=== PATIENT | male | born 1990 ===

== ENCOUNTER 2016-10-22 17:15 | Emergency (ER) | payer SELFPAY ==
[2016-10-22 17:23] VITALS: BP 119/73
--- NOTE | 2016-10-22 17:38 | Emergency Department Report ---
ED Male HPI - General Chief complaint: Urogenital-Male Stated complaint: URINE PAIN Time Seen by Provider: 10/22/16 17:37 Source: patient Mode of arrival: Ambulatory Limitations: No Limitations - History of Present Illness Initial comments: Patient here complaining of painful urination 2 days. He said he had unprotected sex on Sunday and he is requesting STD check. Denied any penile rash or lesion. Denies any penile discharge. He said he has sex with somebody that he is known for a while but he does not trust her. Since that the pain when he urinates is 7 out of 10. Forced urination better after urination. No [id number] medication taken. No nausea or vomiting. No abdominal or back pain. No fever or chills. Patient denies any medical problems. Patient has penicillin allergies that cause anaphylaxis. MD Complaint: dysuria Onset/Timin -: days(s) Severity: moderate Severity scale (0 -10): 7 Quality: burning Consistency: intermittent Worsens with: urination denies other symptoms - Related Data Sexually active: Yes Previous Rx's Medication Instructions Recorded Last Taken Type Clindamycin [Clindamycin CAP] 300 mg PO Q8H #21 cap 12/15/14 Unknown Rx HYDROcodone/APAP 5-325 [[place] 1 each PO Q6HR PRN #12 tablet 12/15/14 Unknown Rx 5/325] Ciprofloxacin HCl [Ciprofloxacin 500 mg PO Q12HR #20 tab 10/22/16 Unknown Rx TAB] Allergies Allergy/AdvReac Type Severity Reaction Status Date / Time Penicillins Allergy Anaphylaxis Verified 12/15/14 09:54 ED Review of Systems ROS: Stated complaint: URINE PAIN Other details as noted in HPI Comment: All other systems reviewed and negative Constitutional: denies: chills, fever ENT: denies: throat pain Respiratory: no symptoms reported Cardiovascular: denies: chest pain, palpitations, edema, syncope Gastrointestinal: denies: abdominal pain, nausea, vomiting, diarrhea Genitourinary: dysuria. denies: urgency, frequency, hematuria, discharge, testicular pain, testicular mass Musculoskeletal: denies: back pain, arthralgia, myalgia Skin: denies: rash Neurological: denies: headache ED Past Medical Hx - Past Medical History Previous Medical History?: No - Surgical History Past Surgical History?: No - Family History Family history: no significant - Social History Smoking Status: Never Smoker Substance Use Type: None - Medications Home Medications: Home Medications Medication Instructions Recorded Confirmed Last Taken Type Clindamycin [Clindamycin CAP] 300 mg PO Q8H #21 cap 12/15/14 Unknown Rx HYDROcodone/APAP 5-325 [[place] 1 each PO Q6HR PRN #12 tablet 12/15/14 Unknown Rx 5/325] Ciprofloxacin HCl [Ciprofloxacin 500 mg PO Q12HR #20 tab 10/22/16 Unknown Rx TAB] ED Physical Exam - General Limitations: No Limitations General appearance: alert, in no apparent distress - Head Head exam: Present: atraumatic, normocephalic, normal inspection - Eye Eye exam: Present: normal appearance, PERRL, EOMI Pupils: Present: normal accommodation - ENT ENT exam: Present: normal exam, normal orophraynx, mucous membranes moist - Neck Neck exam: Present: normal inspection, full ROM. Absent: tenderness, meningismus, lymphadenopathy - Respiratory Respiratory exam: Present: normal lung sounds bilaterally. Absent: respiratory distress, chest wall tenderness - Cardiovascular Cardiovascular Exam: Present: regular rate, normal rhythm, normal heart sounds - GI/Abdominal GI/Abdominal exam: Present: soft, normal bowel sounds. Absent: distended, tenderness, guarding, rebound, rigid - Extremities Exam Extremities exam: Present: normal inspection, full ROM, normal capillary refill. Absent: tenderness, pedal edema, joint swelling, calf tenderness - Back Exam Back exam: Present: normal inspection, full ROM. Absent: tenderness, CVA tenderness (R), CVA tenderness (L), muscle spasm, paraspinal tenderness, vertebral tenderness, rash noted - Neurological Exam Neurological exam: Present: alert, oriented X3, normal gait, reflexes normal. Absent: motor sensory deficit - Psychiatric Psychiatric exam: Present: normal affect, normal mood - Skin Skin exam: Present: warm, dry, intact, normal color. Absent: rash ED Course Vital Signs 10/22/16 17:19 Temperature 98.3 F Pulse Rate 81 Respiratory 14 Rate Blood Pressure 119/73 O2 Sat by Pulse 100 Oximetry - Reevaluation(s) Reevaluation #1: 10/22/16 18:36 Patient given azithromycin 1 g by mouth and Flagyl 2 g by mouth to cover chlamydia and Trichomonas.PT has anaphylaxis an issue allergy to penicillin and I discussed with him that treatment for gonorrhea is penicillin base. Patient opted to wait for result of gonorrhea test. He has positive white blood cell and moderate leukocytes without any bacteria in his urine and I discussed with him that there is a chance even though he doesn't have penile discharge that he could have an STD but gonorrhea and chlamydia tests takes approximately 5 days to be resulted and he will be called if need to be treated. I discussed that he will be treated for Chlamydia and Trichomonas in emergency room today.I also discussed with him that he will be treated with ciprofloxacin for UTI ED Medical Decision Making - Lab Data Lab Results 10/22/16 Range/Units 17:25 Urine Color Yellow (Yellow) Urine Turbidity Clear (Clear) Urine pH 7.0 (5.0-7.0) Ur Specific [place] 1.026 (1.003-1.030) Urine Protein <15 mg/dl (Negative) mg/dL Urine Glucose (UA) Neg (Negative) mg/dL Urine Ketones Neg (Negative) mg/dL Urine Blood Neg (Negative) Urine Nitrite Neg (Negative) Urine Bilirubin Neg (Negative) Urine Urobilinogen 2.0 (<2.0) mg/dL Ur Leukocyte Esterase Mod (Negative) Urine WBC (Auto) 76.0 H (0.0-6.0) /HPF Urine RBC (Auto) 9.0 (0.0-6.0) /HPF U Epithel Cells (Auto) < 1.0 (0-13.0) /HPF Urine Mucus 3+ /HPF Urine culture pending Gonorrhea and chlamydia test pending - Medical Decision Making MDM: ED course Patient here reports that he is having burning with urination and request an STD test then and concerns for STD because he said he had sexual intercourse without condom Sunday and he started having burning with urination 2 days ago. He said his partner is not having any symptoms when he does not trust her. Partner in the room also signed up to be seen in screening for STD. After examination, I discussed the patient's alternative treatment plans. I informed him that he is not having any penile discharge so is a possibility that he could have a urinary tract infection and there is also a possibility that it could also be an STD. Patient opts to be treated for STD and emergency room. He was tested for gonorrhea and chlamydia and lab results are pending. I discussed the patient that test result be back until approximately 5 days. Patient has anaphylaxis to penicillin and I discussed with him that penicillin [place] medication is the treatment of choice for gonorrhea.patient states that he' ll wait for gonorrhea test but he wants to be treated for other STDs.he was treated for chlamydia and Trichomonas.he will also be treated for urinary tract infection.her in culture sent and pending Labs and diagnostics: Urinalysis positive for moderate around amount of leukocyte Estrace and positive white blood cell. Negative bacteria Diagnosis: Concerns for STD, acute cystitis without hematuria, dysuria Medication: Patient given azithromycin 1 g by mouth and Flagyl 2 g by mouth in emergency room without any adverse reaction. He was given a prescription for ciprofloxacin I discussed the patient that he will be called with his results of gonorrhea and chlamydia tests. I discussed with him that he to practice safe sex.. Discussed with them that medication given to treat Trichomonas can cause negative reaction with all call also please refrain from drinking all call for the next 1 week. I sent gonorrhea and chlamydia is pending and an urine culture is pending. I also discussed with him that he needs to refrain from having sexual activity for the next 10 days. Patient voiced understanding of discharge instruction and treatment plan and I told him that he can follow up with health department and at [facility] in 7-10 days. Critical care attestation.: If time is entered above; I have spent that time in minutes in the direct care of this critically ill patient, excluding procedure time. ED Disposition Clinical Impression: Dysuria, Concern about STD in male without diagnosis, Acute cystitis without hematuria Disposition: DC- TO HOME OR SELFCARE Is pt being admited?: No Does the pt Need Aspirin: No Condition: Stable Instructions: Urinary Tract Infection in Men (ED), Dysuria (ED), Safe Sex (ED) , Sexually Transmitted Diseases (ED) Additional Instructions: Please practice safe sex Please take antibiotic as prescribed You have a urinary tract infection and will be treated with Ciprofloxacin Please do not have any sexual activity for the next 10 days please do not drink alcohol within next 7 days of this medication can interact negatively with Flagyl which is the medication [facility] for Trichomonas. Prescriptions: Ciprofloxacin HCl [Ciprofloxacin TAB] 500 mg PO Q12HR #20 tab Referrals: [facility] [Outside] - 7-10 days [facility] [Outside] - 7-10 days Forms: Work/School Release Form(ED)
[2016-10-22 17:58] LABS: Bilirubin,Urine NEG (Negative); Blood,Urine NEG (Negative); Ketones,Urine NEG (Negative); Leukocyte Esterase,Urine MOD (Negative); Mucus,Urine 3+ /HPF; Nitrite,Urine NEG (Negative); Protein,Urine <15 mg/dL mg/dL (Negative)
[2016-10-22] MEDS ORDERED: FLAGYL PO ONE (18:30)
[2016-10-22] MEDS ORDERED: ZITHROMAX PO ONE (18:31)
== END 2016-10-22 19:02 | disposition home or self-care (01) ==
LOC: ED 17:15
DX: N30.00 Acute cystitis without hematuria (principal); R30.0 Dysuria; Z88.0 Allergy status to penicillin
CPT/HCPCS: 81001; 87086; 87591; 99283

== ENCOUNTER 2017-08-22 11:52 | Emergency (ER) | payer BC ==
[2017-08-22 12:19] VITALS: BP 116/80
--- NOTE | 2017-08-22 15:49 | Emergency Department Report ---
ED Back Pain/Injury HPI - General Chief Complaint: Back Pain/Injury Stated Complaint: NECK AND BACK PAIN Time Seen by Provider: 08/22/17 14:54 Source: patient Limitations: No Limitations - History of Present Illness Initial Comments: Patient is 26 years old male with no significant past medical history. Patient presented to the ER complaining of back pain and muscle spasm since June of this year. Patient stated that he do a lot of lifting. He denied any recent injury, fever, bowel or bladder incontinence. MD Complaint: back pain - Related Data Previous Rx's Medication Instructions Recorded Last Taken Type Clindamycin [Clindamycin CAP] 300 mg PO Q8H #21 cap 12/15/14 Unknown Rx HYDROcodone/APAP 5-325 [[place] 1 each PO Q6HR PRN #12 tablet 12/15/14 Unknown Rx 5/325] Ciprofloxacin HCl [Ciprofloxacin 500 mg PO Q12HR #20 tab 10/22/16 Unknown Rx TAB] Allergies Allergy/AdvReac Type Severity Reaction Status Date / Time Penicillins Allergy Anaphylaxis Verified 12/15/14 09:54 ED Review of Systems ROS: Stated complaint: NECK AND BACK PAIN Other details as noted in HPI Comment: All other systems reviewed and negative Constitutional: denies: chills, fever Respiratory: denies: cough, orthopnea, shortness of breath, SOB with exertion, SOB at rest, wheezing Cardiovascular: denies: chest pain, palpitations Gastrointestinal: denies: abdominal pain, nausea, vomiting, diarrhea, constipation Musculoskeletal: denies: back pain Neurological: denies: headache, weakness ED Past Medical Hx - Past Medical History Previous Medical History?: No - Surgical History Past Surgical History?: No - Social History Smoking Status: Never Smoker Substance Use Type: None - Medications Home Medications: Home Medications Medication Instructions Recorded Confirmed Last Taken Type Clindamycin [Clindamycin CAP] 300 mg PO Q8H #21 cap 12/15/14 Unknown Rx HYDROcodone/APAP 5-325 [[place] 1 each PO Q6HR PRN #12 tablet 12/15/14 Unknown Rx 5/325] Ciprofloxacin HCl [Ciprofloxacin 500 mg PO Q12HR #20 tab 10/22/16 Unknown Rx TAB] ED Physical Exam - General Limitations: No Limitations General appearance: alert, in no apparent distress - Head Head exam: Present: atraumatic, normocephalic, normal inspection - Eye Eye exam: Present: normal appearance - ENT ENT exam: Present: normal exam, normal orophraynx, mucous membranes moist - Neck Neck exam: Present: normal inspection, full ROM. Absent: tenderness, meningismus, lymphadenopathy, thyromegaly - Respiratory Respiratory exam: Present: normal lung sounds bilaterally - Cardiovascular Cardiovascular Exam: Present: regular rate, normal heart sounds - GI/Abdominal GI/Abdominal exam: Present: soft, normal bowel sounds. Absent: distended, tenderness, guarding, rebound, rigid, organomegaly, mass - Extremities Exam Extremities exam: Present: normal inspection - Back Exam Back exam: Present: normal inspection, full ROM, muscle spasm. Absent: tenderness, CVA tenderness (R), CVA tenderness (L), paraspinal tenderness, vertebral tenderness, rash noted - Neurological Exam Neurological exam: Present: alert, oriented X3, CN II-XII intact - Skin Skin exam: Present: warm, intact, normal color ED Course Vital Signs 08/22/17 12:19 Temperature 98.6 F Pulse Rate 63 Respiratory 16 Rate Blood Pressure 116/80 [Left] O2 Sat by Pulse 100 Oximetry Critical care attestation.: If time is entered above; I have spent that time in minutes in the direct care of this critically ill patient, excluding procedure time. ED Disposition Clinical Impression: Back pain, Muscle spasm Disposition: DC-01 TO HOME OR SELFCARE Is pt being admited?: No Condition: Stable Instructions: Low Back Strain (ED), Muscle Spasm (ED) Referrals: PRIMARY CARE, [Primary Care Provider] - 3-5 Days
== END 2017-08-22 16:04 | disposition home or self-care (01) ==
LOC: ED 11:52
DX: M54.9 Dorsalgia, unspecified (principal); M62.830 Muscle spasm of back; Z88.0 Allergy status to penicillin
CPT/HCPCS: 99282